=== PATIENT | female | born 1980 | race Caucasian/White ===

== ENCOUNTER 2022-04-26 10:03 | Outpatient (REF) | payer OTHER, SELFPAY ==
[2022-04-26 13:59] LABS: CT PCR NOT DETECTED (Not Detect.)
[2022-04-26 14:00] LABS: NG PCR NOT DETECTED (Not Detect.)
[2022-05-01 05:03] LABS: HPV mRNA E6/E7 rflx Not Detected (Not Detected)
== END 2022-04-26 10:04 | disposition home or self-care (01) ==
LOC: HO.LNP 10:03
PROVIDERS: Visit Provider Advanced Practice Midwife
DX: Z01.419 Encounter for gynecological examination (general) (routine) without abnormal findings (principal); Z11.51 Encounter for screening for human papillomavirus (HPV); Z20.2 Contact with and (suspected) exposure to infections with a predominantly sexual mode of transmission
CPT/HCPCS: 0353U; 81025; 87480; 87510; 87624; 87660; 88142

== ENCOUNTER 2022-05-07 15:18 | Outpatient (REF) | payer OTHER, SELFPAY ==
[2022-05-08 09:28] LABS: BV Int Neg Control Negative (Negative); BV Int Pos Control Positive (Positive)
== END 2022-05-07 15:19 | disposition home or self-care (01) ==
LOC: HO.LNP 15:18
PROVIDERS: Visit Provider Advanced Practice Midwife
DX: Z11.3 Encounter for screening for infections with a predominantly sexual mode of transmission (principal)
CPT/HCPCS: 87480; 87510; 87660

== ENCOUNTER 2023-05-13 09:26 | Outpatient (AMB) | payer OTHER, SELFPAY ==
[2023-05-13 09:33] VITALS: BP 126/70; BMI 32.4
--- NOTE | 2023-05-13 09:33 | A.OFFVIS_ITS ---
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 She is sexually active so she would like to get tested for STIs. She is feeling like she is doing very well she never did get to go have the mammogram because it had to be rescheduled as well as the blood work did not get done and somehow it got canceled in the system and it is not clear who cancel that or why. The patient was called after the visit and she said she will get those labs why we will have her go fasting. She has been notified by shopp of the primary care provider but she has to call to make an appointment. She has had her tubes tied so she does not need to worry about . She usually uses condoms but 1 broke last. [facility] Surgical History H/O tubal ligation Social History Alcohol intake: current Alcohol intake frequency: holidays/special occasions only Female Reproductive History Menstrual Age of Menarche: 15 Duration of menses: 3-5 days Date of last menstrual period: 04/19/23 control method: permanent sterilization Total pregnancies: 3 Full term: 3 Date of last pap smear: 04/26/22 (neg,previous pap,01/2014,neg) History of abnormal pap smear: No Physical Exam Vital Signs: Last Vital Signs BP 126/70 05/13/23 09:33 BMI result Body Mass Index 32.4 Assessment & Plan Assessment & Plan (1) History of irregular menstrual cycles: Code(s): Z87.42 - Personal history of other diseases of the female genital tract (2) Screen for sexually transmitted diseases: Code(s): Z11.3 - Encounter for screening for infections with a predominantly sexual mode of transmission (3) Cervical cancer screening: Comment: 04/26/2022 Pap is negative with negative HPV. Code(s): Z12.4 - Encounter for screening for malignant neoplasm of cervix (4) Breast cancer screening: Code(s): Z12.39 - Encounter for other screening for malignant neoplasm of breast (5) Well woman exam with routine gynecological exam: Code(s): Z01.419 - Encounter for gynecological examination (general) (routine) without abnormal findings (6) Hirsutism: Code(s): L68.0 - Hirsutism Plan -----Discussed in this visit the following: healthy balanced diet, regular and consistent exercise, getting recommended health screens, doing the best she can for her particular health concerns, kegel exercises, pap smear screening and followup recommendations, mammography screening and SBE, normal changes in cycles in her life stage--- . She in did not get to go for all the lab work last year or the mammogram because she had to reschedule it a couple of times so she has not sure what happened to the order. She had a lot going on then but now she has in a job where she is able to work around her kids schedule and things are so much less stress. She did want to get checked for STIs so that those orders have been placed. Reviewed all the labs that had been ordered last year and she was called by the Gladys at the assistant front end manager . She would like to get those labs done so I will place them all back in the system it has not clear why they got canceled Orders: Orders HIV Ab/Ag Today Z01.419 - Encounter for gynecological examination (general) (routine) without abnormal findings, Z11.3 - Encounter for screening for infections with a predominantly sexual mode of transmission, Z12.39 - Encounter for other screening for malignant neoplasm of breast, Z12.4 - Encounter for screening for malignant neoplasm of cervix, Z87.42 - Personal history of other diseases of the female genital tract MM tomosynthesis screening BI Today Z01.419 - Encounter for gynecological examination (general) (routine) without abnormal findings, Z12.31 - Encounter for screening mammogram for malignant neoplasm of breast, Z12.39 - Encounter for other screening for malignant neoplasm of breast CT NG by PCR Today Z01.419 - Encounter for gynecological examination (general) (routine) without abnormal findings Bacterial Vaginosis Panel Today Z20.2 - Contact with and (suspected) exposure to infections with a predominantly sexual mode of transmission DHEA Sulfate Today L68.0 - Hirsutism, Z01.419 - Encounter for gynecological examination (general) (routine) without abnormal findings, Z87.42 - Personal history of other diseases of the female genital tract Testosterone, Free/Total Today L68.0 - Hirsutism, Z01.419 - Encounter for gynecological examination (general) (routine) without abnormal findings, Z87.42 - Personal history of other diseases of the female genital tract Complete Blood Count no Diff Today L68.0 - Hirsutism, Z01.419 - Encounter for gynecological examination (general) (routine) without abnormal findings, Z87.42 - Personal history of other diseases of the female genital tract Hepatitis B Surface Antigen Today Z01.419 - Encounter for gynecological examination (general) (routine) without abnormal findings, Z11.3 - Encounter for screening for infections with a predominantly sexual mode of transmission, Z12.39 - Encounter for other screening for malignant neoplasm of breast, Z12.4 - Encounter for screening for malignant neoplasm of cervix, Z87.42 - Personal history of other diseases of the female genital tract Hepatitis C Antibody Today Z01.419 - Encounter for gynecological examination (general) (routine) without abnormal findings, Z11.3 - Encounter for screening for infections with a predominantly sexual mode of transmission, Z12.39 - Encounter for other screening for malignant neoplasm of breast, Z12.4 - En counter for screening for malignant neoplasm of cervix, Z87.42 - Personal history of other diseases of the female genital tract Syphilis Screen Today Z01.419 - Encounter for gynecological examination (general) (routine) without abnormal findings, Z11.3 - Encounter for screening for infections with a predominantly sexual mode of transmission, Z12.39 - Encounter for other screening for malignant neoplasm of breast, Z12.4 - Encounter for screening for malignant neoplasm of cervix, Z87.42 - Personal history of other diseases of the female genital tract Thyroid Stimulating Hormone Today L68.0 - Hirsutism, Z01.419 - Encounter for gynecological examination (general) (routine) without abnormal findings, Z87.42 - Personal history of other diseases of the female genital tract Prolactin Today L68.0 - Hirsutism, Z01.419 - Encounter for gynecological examination (general) (routine) without abnormal findings, Z87.42 - Personal history of other diseases of the female genital tract Glucose Random Today L68.0 - Hirsutism, Z01.419 - Encounter for gynecological examination (general) (routine) without abnormal findings, Z87.42 - Personal history of other diseases of the female genital tract Coding Level of Care Code Est Pt Prev Care 40-64y(21468) Diagnoses History of irregular menstrual cycles Z87.42 Screen for sexually transmitted diseases Z11.3 Cervical cancer screening Z12.4 Breast cancer screening Z12.39 Well woman exam with routine gynecological exam Z01.419 Hirsutism L68.0
== END 2023-05-13 11:01 | disposition home or self-care (01) ==
PROVIDERS: Visit Provider Advanced Practice Midwife
DX: Z01.419 Encounter for gynecological examination (general) (routine) without abnormal findings (principal); L68.0 Hirsutism; Z87.42 Personal history of other diseases of the female genital tract
CPT/HCPCS: 99396

== ENCOUNTER 2023-05-13 09:26 | Outpatient (REF) | payer OTHER, SELFPAY ==
[2023-05-14 02:43] LABS: CT PCR NOT DETECTED (Not Detect.); NG PCR NOT DETECTED (Not Detect.)
[2023-05-14 13:10] LABS: BV Int Neg Control Negative (Negative); BV Int Pos Control Positive (Positive)
== END 2023-05-13 09:27 | disposition home or self-care (01) ==
LOC: HO.LAB 09:26
PROVIDERS: Visit Provider Advanced Practice Midwife
DX: Z01.419 Encounter for gynecological examination (general) (routine) without abnormal findings (principal); L68.0 Hirsutism; Z20.2 Contact with and (suspected) exposure to infections with a predominantly sexual mode of transmission; Z11.3 Encounter for screening for infections with a predominantly sexual mode of transmission; Z98.51 Tubal ligation status; Z87.42 Personal history of other diseases of the female genital tract
CPT/HCPCS: 0353U; 87480; 87510; 87660; 99396

== ENCOUNTER → 2023-12-31 10:41 | Outpatient (BNVA) | payer SELFPAY | PROVIDERS: Visit Provider Internal Medicine | DX: Z02.79 Encounter for issue of other medical certificate (principal) ==